=== PATIENT | male | born 1945 | race Caucasian/White ===

== ENCOUNTER 2019-11-28 00:57 | Inpatient (IN) | payer MEDICARE ==
[~2019-11-28] VITALS: Ht 172.7 cm; Wt 99.8 kg
[2019-11-28] VITALS (10 sets, daily range): BP systolic 117–152; BP diastolic 50–81; BMI 33.5
--- NOTE | 2019-11-28 01:41 | NUR ---
FSBS 113. EDP INFORMED.
--- NOTE | 2019-11-28 04:31 | NUR ---
URINE OBTAINED VIA STRAIGHT CATH AT THIS TIME.
[2019-11-28 04:44] LABS: BASOPHILS 0.3 % (0-2); EOSINOPHILS 0.6 % (0-7); HEMATOCRIT 31.2 % (42.0-54.0); HEMOGLOBIN 9.8 g/dL (13.5-17.5); IMMATURE GRANULOCYTES 0.1 % (0-5); LYMPHOCYTES 8.1 % (15-50); MCH 27.5 pg (26.0-34.0); MCHC 31.4 g/dL (31.0-37.0); MCV 87.6 fL (80.0-100.0); MEAN PLATELET VOLUME 8.8 fL (7.4-10.4); MONOCYTES 10.7 % (2-11); NEUTROPHILS 80.2 % (40-80); PLATELET COUNT 246 10x3/uL (130-400); RBC 3.56 10x6/uL (4.20-6.10); RDW 15.8 % (11.5-14.5); WBC 8.6 10x3/uL (4.8-10.8)
[2019-11-28 04:53] LABS: ANION GAP 9.3 mmol/L (8-16); CALCIUM 8.1 mg/dL (8.5-10.1); CARBON DIOXIDE 31.4 mmol/L (21.0-32.0); CREATININE - SERUM 1.4 mg/dL (0.6-1.3); POTASSIUM - SERUM 3.7 mmol/L (3.5-5.1)
[2019-11-28 04:58] LABS: ALBUMIN 2.3 g/dL (3.4-5.0); BILIRUBIN - TOTAL 1.68 mg/dL (0.2-1.3); PROTEIN - SERUM 8.2 g/dL (6.4-8.2)
[2019-11-28 05:40] LABS: BILIRUBIN NEGATIVE (NEGATIVE); GLUCOSE NEGATIVE (NEGATIVE); KETONE NEGATIVE (NEGATIVE); NITRITE NEGATIVE (NEGATIVE); SPECIFIC GRAVITY 1.015 (1.005-1.020); UROBILINOGEN NORMAL (NORMAL)
[2019-11-28 05:41] LABS: BACTERIA MODERATE /hpf (NEGATIVE); EPITHELIAL CELLS 0-5 /hpf (0-5); RED CELLS - URINE 0-5 /hpf (0-5)
[2019-11-28] MEDS ORDERED: FOLATE0.4 MG PO (06:35)
[2019-11-28] MEDS ORDERED: KLONOPIN0.5 MG PO (06:35)
[2019-11-28] MEDS ORDERED: HUMALOG 30100 UNITS/ (06:36)
[2019-11-28] MEDS ORDERED: GENTAMICIN80 MG/2 ML IM (06:36)
[2019-11-28] MEDS ORDERED: BASAGLAR K100 UNIT/1 SC (06:37)
[2019-11-28] MEDS ORDERED: ATARAX 25 MG TA25 MG PO (06:37)
[2019-11-28] MEDS ORDERED: LASIX40 MG PO (06:38)
[2019-11-28] MEDS ORDERED: MIRAPEX0.5 MG PO (06:38)
[2019-11-28] MEDS ORDERED: METOLAZONE5 MG PO (06:38)
[2019-11-28] MEDS ORDERED: MIRALAX17 GM PO (06:39)
[2019-11-28] MEDS ORDERED: K-TAB10 MEQ PO (06:40)
--- NOTE | 2019-11-28 07:30 | NUR ---
ARRIVED TO ROOM 2217 FROM ER YELLING OUT. RESP EVEN AND UNLABORED WITH NO DISTRESS NOTED. NO C/O NOTED AT THIS TIME. TURN AND REPOSITIONED EVERY TWO HOURS. DRESSING NOTED TO BLE. BRUISING NOTED TO BUE. REDNESS NOTED TO BUTTOCK. ASSESSMENT COMPLETED. INCONT OF BOWEL AND BLADDER WITH JB CARE GIVEN EVERY TWO HOURS AND PRN. C/L IN REACH AT BEDSIDE.
--- NOTE | 2019-11-28 07:31 | NUR ---
I have reviewed this patient and I concur with the Shift Assessment completed by the Licensed Practical Nurse today this shift.
--- NOTE | 2019-11-28 11:49 | NUR ---
Pt has numerous open and scabbed wounds on bilateral lower extremities. Skin is dry, flaky and hairless. He is unable to answer any questions as to how long he has had these wounds. He also 0.5cm x 0.5cm of eschar on tip of both great toes. Recommend painting with betadine and covering leg wounds with adaptic soaked with betadine then wrapping with cast padding and kerlix from base of toes to base of knees on both legs. Wound care will monitor.
[2019-11-28 14:52] LABS: APTT 49.5 SECONDS (22.8-39.4); INR 1.55 (0.85-1.17); PROTIME 18.4 SECONDS (11.6-15.0)
--- NOTE | 2019-11-28 19:30 | NUR ---
ORIENTED TO SELF. UNABLE TO REORIENT. PT FORGETS CONVERSATIONS IMMEDIATELY AFTER NURSE EXITS ROOM. PT YELLING LOUDLY, "I WANNA GO HOME," "I NEED TO GET UP," AND SHOUTING DEMANDS. PT SEEN TRYING TO GET OUT OF BED. INCONT OR BOWEL AND BLADDER. GIVEN WATER AND SNACKS PER REQUEST, PT IS THROWING THEM IN THE MOHR AND ON THE FLOOR NEXT TO BED. WILL MONITOR CLOSELY.
[2019-11-29] VITALS: BP 109/67
--- NOTE | 2019-11-29 02:53 | NUR ---
I have reviewed this patient and I concur with the Shift Assessment completed by the Licensed Practical Nurse today this shift.
[2019-11-29 04:00] VITALS: BP 117/55
[2019-11-29 05:09] LABS: BASOPHILS 0.7 % (0-2); EOSINOPHILS 1.4 % (0-7); HEMATOCRIT 32.6 % (42.0-54.0); HEMOGLOBIN 10.1 g/dL (13.5-17.5); IMMATURE GRANULOCYTES 0.3 % (0-5); LYMPHOCYTES 11.8 % (15-50); MCH 26.9 pg (26.0-34.0); MCV 86.9 fL (80.0-100.0); MEAN PLATELET VOLUME 9.3 fL (7.4-10.4); MONOCYTES 12.1 % (2-11); NEUTROPHILS 73.7 % (40-80); PLATELET COUNT 272 10x3/uL (130-400); RBC 3.75 10x6/uL (4.20-6.10); RDW 16.1 % (11.5-14.5)
[2019-11-29 05:40] LABS: ALBUMIN 2.1 g/dL (3.4-5.0); ANION GAP 9.5 mmol/L (8-16); BILIRUBIN - TOTAL 1.67 mg/dL (0.2-1.3); CALCIUM 7.9 mg/dL (8.5-10.1); CARBON DIOXIDE 30.8 mmol/L (21.0-32.0); CREATININE - SERUM 1.7 mg/dL (0.6-1.3); PHOSPHOROUS 3.4 mg/dL (2.5-4.9); POTASSIUM - SERUM 3.3 mmol/L (3.5-5.1); PROTEIN - SERUM 7.8 g/dL (6.4-8.2)
[2019-11-29 09:28] VITALS: BP 132/60
[2019-11-29 13:20] VITALS: BP 126/59
[2019-11-29 13:30] VITALS: Ht 172.7 cm; Wt 99.8 kg
[2019-11-29 16:45] VITALS: BP 129/63
--- NOTE | 2019-11-29 17:30 | NUR ---
I have reviewed this patient and I concur with the Shift Assessment completed by the Licensed Practical Nurse today this shift.
[2019-11-29 20:00] VITALS: BP 129/59
[2019-11-30] VITALS: BP 129/59
--- NOTE | 2019-11-30 03:57 | NUR ---
I have reviewed this patient and I concur with the Shift Assessment completed by the Licensed Practical Nurse today this shift.
[2019-11-30 04:00] VITALS: BP 136/77
[2019-11-30 05:08] LABS: BASOPHILS 0.4 % (0-2); EOSINOPHILS 2.4 % (0-7); HEMATOCRIT 32.4 % (42.0-54.0); HEMOGLOBIN 9.8 g/dL (13.5-17.5); IMMATURE GRANULOCYTES 0.4 % (0-5); LYMPHOCYTES 14.8 % (15-50); MCH 26.4 pg (26.0-34.0); MCHC 30.2 g/dL (31.0-37.0); MCV 87.3 fL (80.0-100.0); MEAN PLATELET VOLUME 9.1 fL (7.4-10.4); MONOCYTES 12.9 % (2-11); NEUTROPHILS 69.1 % (40-80); PLATELET COUNT 291 10x3/uL (130-400); RBC 3.71 10x6/uL (4.20-6.10); RDW 16.3 % (11.5-14.5)
[2019-11-30 05:45] LABS: ANION GAP 11.5 mmol/L (8-16); CALCIUM 8.3 mg/dL (8.5-10.1); CARBON DIOXIDE 30.6 mmol/L (21.0-32.0); CREATININE - SERUM 1.5 mg/dL (0.6-1.3); POTASSIUM - SERUM 3.1 mmol/L (3.5-5.1)
--- NOTE | 2019-11-30 08:03 | NUR ---
ADMINISTERED MORNING MEDICATION AT THIS TIME, NO DIFFICULTY. PT IS UPRIGHT IN BED WAITING FOR BREAKFAST. DENIES ANY NEEDS. BED IN LOWEST POSITION, BED RAILS X3, CALL LIGHT WITHIN REACH. WILL CONTINUE TO MONITOR.
[2019-11-30 08:45] VITALS: BP 141/75
--- NOTE | 2019-11-30 11:20 | NUR ---
ADMINISTERED MEDICATION AND ASSESSED BLOOD SUGAR. 225, REQUIRED 4 UNITS OF INSULIN PER SLIDING SCALE. DENIES ANY NEEDS. ASSESSMENT PERFORMED DURING THIS TIME. BED IN LOWEST POSITION, BED RAILS X3, CALL LIGHT WITHIN REACH. WILL CONTINUE TO MONITOR.
[2019-11-30 12:30] VITALS: BP 120/57
--- NOTE | 2019-11-30 14:00 | NUR ---
ADMINISTERED PRN FOR PAIN/BURNING IN BILATERAL LOWER LEGS. CHANGED DRESSING ON BOTH LEGS AND FEET. TOLERATED WELL. PT IS RESTING COMFORTABLY IN BED. DENIES ANY OTHER NEEDS AT THIS TIME. WILL CONTINUE TO MONITOR.
--- NOTE | 2019-11-30 14:17 | NUR ---
I have reviewed this patient and I concur with the Shift Assessment completed by the Licensed Practical Nurse today this shift.
--- NOTE | 2019-11-30 15:50 | NUR ---
PT HAS NO IV, CONTINUES TO PULL OUT ALL IV'S STARTED. WILL REQUEST THE ONE ANTIBIOTIC THAT IS PRESCRIBED, BE CHANGED TO PO.
--- NOTE | 2019-11-30 16:38 | NUR ---
ASSESSED BLOOD SUGAR, 172. 2 UNITS OF INSULIN PER SLIDING SCALE. TOLERATED. PT RESTING IN BED WITH EYES CLOSED, EASILY AROUSES TO VOICE. DENIES ANY NEEDS. WILL CONTINUE TO MONITOR.
[2019-11-30 16:47] VITALS: BP 106/70
[2019-11-30 20:00] VITALS: BP 139/71
--- NOTE | 2019-11-30 23:32 | NUR ---
AWAKE,ALERT WITH CONFUSION NOTED. IV TO LFA INTACT WITHOUT REDNESS OR EDEMA NOTED. HAS BRUSING NOTED TO BILATERAL ARMS.DRESSING TO BILATERAL LEGS.FALL PRECAUTIONS IN PLACE. CL IN REACH
--- NOTE | 2019-12-01 02:51 | NUR ---
I have reviewed this patient and I concur with the Shift Assessment completed by the Licensed Practical Nurse today this shift.
[2019-12-01 04:00] VITALS: BP 136/65
[2019-12-01 05:27] LABS: HEMATOCRIT 30.4 % (42.0-54.0); HEMOGLOBIN 9.6 g/dL (13.5-17.5); LYMPHOCYTES 15.1 % (15-50); MCH 27.7 pg (26.0-34.0); MCHC 31.6 g/dL (31.0-37.0); MCV 87.9 fL (80.0-100.0); MEAN PLATELET VOLUME 8.7 fL (7.4-10.4); NEUTROPHILS 73.4 % (40-80); PLATELET COUNT 292 10x3/uL (130-400); RBC 3.46 10x6/uL (4.20-6.10); RDW 16.2 % (11.5-14.5); WBC 7.6 10x3/uL (4.8-10.8)
[2019-12-01 05:33] LABS: ANION GAP 8.1 mmol/L (8-16); CALCIUM 7.8 mg/dL (8.5-10.1); CARBON DIOXIDE 31.3 mmol/L (21.0-32.0); CREATININE - SERUM 1.4 mg/dL (0.6-1.3); POTASSIUM - SERUM 3.4 mmol/L (3.5-5.1)
[2019-12-01 07:00] VITALS: BP 113/71
--- NOTE | 2019-12-01 07:47 | NUR ---
PT RESTING IN BED ALERT, BUT CONFUSED. IV LOCATED TO LEFT FOREARM CURRENTLY RUNNING NS @ 10ML/HR. NO CURRENT S/S OF DISTRESS, DENIES CURRENT NEEDS, WILL CONTINUE TO MONITOR.
[2019-12-01 11:00] VITALS: BP 113/71; BP 137/68
[2019-12-01 15:00] VITALS: BP 119/48
--- NOTE | 2019-12-01 23:48 | NUR ---
DRESSING CHANGE DONE TO BIALTERAL LOWER LEGS. HAS REDNESS WITH SCABS AND SORES NOTED. BLACK AREAS NOTED. IV TO LFA INTACT WITHOUT REDNESS OR EDMEA NOTED. CL IN REACH
[2019-12-02] VITALS: BP 140/54
[2019-12-02 04:00] VITALS: BP 144/57
--- NOTE | 2019-12-02 06:18 | NUR ---
I have reviewed this patient and I concur with the Shift Assessment completed by the Licensed Practical Nurse today this shift.
[2019-12-02 06:35] LABS: HEMOGLOBIN 9.8 g/dL (13.5-17.5); LYMPHOCYTES 18.8 % (15-50); MCHC 30.6 g/dL (31.0-37.0); MCV 88.2 fL (80.0-100.0); MEAN PLATELET VOLUME 8.2 fL (7.4-10.4); NEUTROPHILS 64.5 % (40-80); PLATELET COUNT 264 10x3/uL (130-400); RBC 3.63 10x6/uL (4.20-6.10); RDW 16.4 % (11.5-14.5)
[2019-12-02 06:59] LABS: ANION GAP 7.9 mmol/L (8-16); CALCIUM 7.8 mg/dL (8.5-10.1); CARBON DIOXIDE 31.3 mmol/L (21.0-32.0); CREATININE - SERUM 1.4 mg/dL (0.6-1.3)
[2019-12-02 07:00] LABS: POTASSIUM - SERUM 3.2 mmol/L (3.5-5.1)
--- NOTE | 2019-12-02 08:30 | NUR ---
PATIENT IN BED WITH IV INTACT. NO COMPLAINTS OR SIGNS OF DISTRESS. CONFUSED, BA ON. CALL LIGHT WITHIN REACH. WILL CONTINUE TO MONITOR.
[2019-12-02 08:32] VITALS: BP 157/71
[2019-12-02 12:40] VITALS: BP 140/80
[2019-12-02 17:37] VITALS: BP 140/78
--- NOTE | 2019-12-02 18:45 | NUR ---
PATIENT IN BED WITH EYES CLOSED RESTING QUIETLY. IV INTACT. CALL LIGHT WITHIN REACH. BA.
[2019-12-02 20:00] VITALS: BP 133/91
--- NOTE | 2019-12-02 21:00 | NUR ---
AWAKE,ALERT,CONTINUES TO HAVE CONFUSIONN. ORIETED TO SELF ONLY.RESP UNALBORED. NO DISTRESS NOTED. DRESSINGS TO BILATERAL LEGS INTACT.O2@ 2L PER NC ON NO DISTRESS NOTED. CL LIGHT IN REACH
[2019-12-03 04:51] LABS: HEMATOCRIT 31.1 % (42.0-54.0); HEMOGLOBIN 9.7 g/dL (13.5-17.5); LYMPHOCYTES 16.6 % (15-50); MCH 27.4 pg (26.0-34.0); MCHC 31.2 g/dL (31.0-37.0); MCV 87.9 fL (80.0-100.0); MEAN PLATELET VOLUME 8.4 fL (7.4-10.4); NEUTROPHILS 66.6 % (40-80); PLATELET COUNT 257 10x3/uL (130-400); RBC 3.54 10x6/uL (4.20-6.10); RDW 16.7 % (11.5-14.5); WBC 5.9 10x3/uL (4.8-10.8)
[2019-12-03 05:04] LABS: ANION GAP 9.5 mmol/L (8-16); CARBON DIOXIDE 30.2 mmol/L (21.0-32.0); CREATININE - SERUM 1.5 mg/dL (0.6-1.3)
[2019-12-03 05:10] LABS: POTASSIUM - SERUM 3.7 mmol/L (3.5-5.1)
[2019-12-03 08:10] VITALS: BP 132/63
[2019-12-03 11:54] VITALS: BP 135/66
--- NOTE | 2019-12-03 12:29 | NUR ---
NO CHANGES IN WOUNDS ON BILATERAL LOWER LEGS. CURRENTLY APPLYING BETADINE SOAKED ADAPTIC OVER OPEN AREAS AND WRAPPING WITH KERLIX. BUTTOCKS BLANCHABLE REDNESS. ZINC OXIDE PASTE IS BEING APPLIED DAILY AND NEEDED WITH PERSONAL CARE. WOUND CARE CONTINUES TO MONITOR.
--- NOTE | 2019-12-03 13:44 | NUR ---
Nutrition follow-up: Pt was eating breakfast at time of RDN visit PO intake has improved - ~50% average at meals Pt more alert Labs reviewed Wt: 219# +BM RDN following.
--- NOTE | 2019-12-03 13:44 | MORECARE ---
CASE MANAGEMENT DISCHARGE SUMMARY PATIENT: DELICIA BRYSON UNIT: [id number] ADM DATE: 11/28/19 AGE: 74 : 44 SEX: M ROOM/BED: D.2217 AUTHOR: GUSTAVO MICHELE PHYSICIAN: REFERRING PHYSICIAN: LILIAN IGLESIAS MD DATE OF SERVICE: 12/03/19 Discharge Plan Patient Name: DELICIA BRYSON [facility] [facility] 1945 Planned Disposition: Inpatient Rehab Anticipated Discharge Date: Discharge Date: Expected LOS: Initial Reviewer: [id number] Initial Review Date: 11/28/2019 Generated: 12/03/19 2:44 pm Patient Name: DELICIA BRYSON Page 61850 at 1344 All edits/amendments must be made on the electronic document DICTATION DATE: 12/03/19 1344 PERSONAL BANKING ASSISTANT: ONOFRE 12/03/19 1344 RPT#: [id number] DC DATE: STATUS: ADM IN [facility] [address] [place] [address] END OF REPORT
--- NOTE | 2019-12-03 13:52 | MORECARE ---
CASE MANAGEMENT DISCHARGE SUMMARY PATIENT: DELICIA BRYSON UNIT: [id number] ADM DATE: 11/28/19 AGE: 74 : 44 SEX: M ROOM/BED: D.2217 AUTHOR: GUSTAVO MICHELE PHYSICIAN: REFERRING PHYSICIAN: LILIAN IGLESIAS MD DATE OF SERVICE: 12/03/19 Discharge Plan Patient Name: DELICIA BRYSON [facility] [facility] 1945 Planned Disposition: Inpatient Rehab Anticipated Discharge Date: Discharge Date: Expected LOS: Initial Reviewer: [email or web address] Initial Review Date: 11/28/2019 Generated: 12/03/19 2:52 pm DCPIA - Discharge Planning Initial Assessment Updated by [id number]: Denisse Barnes on 12/03/19 1:50 pm * Is the patient Alert and Oriented? Yes * How many steps to enter\exit or inside your home? STEPS * PCP HOLLIE * [facility] * Preadmission Environment [facility] Facility * Facility Name [facility] * ADLs Total Dependent * Equipment Bedside Commode * List name and contact numbers for known caregivers / representatives who currently or will assist patient after discharge: KAILA KNAPP ([facility])[phone] * Verbal permission to speak to the caregivers and representatives has been obtained from the patient. Yes * Additional services required to return to the preadmission environment? Yes * Can the patient safely return to the preadmission environment? Yes * Has this patient been hospitalized within the prior 30 days at any hospital? No Last DP export: 12/03/19 12:44 p Patient Name: DELICIA BRYSON Page 36640 at 1352 All edits/amendments must be made on the electronic document DICTATION DATE: 12/03/19 135 UNIFORM FORCE CAPTAIN: ONOFRE 12/03/19 1352 RPT#: [id number] DC DATE: STATUS: ADM IN [facility] [address] [place] [address] END OF REPORT
--- NOTE | 2019-12-03 14:00 | MORECARE ---
CASE MANAGEMENT DISCHARGE SUMMARY PATIENT: DELICIA BRYSON UNIT: [id number] ADM DATE: 11/28/19 AGE: 74 : 44 SEX: M ROOM/BED: D.2217 AUTHOR: LENYDOC PHYSICIAN: REFERRING PHYSICIAN: LILIAN IGLESIAS MD DATE OF SERVICE: 12/03/19 Discharge Plan Patient Name: DELICIA BRYSON Facility: [facility]:[place] : 1945 Planned Disposition: Inpatient Rehab Anticipated Discharge Date: Discharge Date: Expected LOS: Initial Reviewer: [email or web address] Initial Review Date: 11/28/2019 Generated: 12/03/19 2:59 pm Comments DCP- Discharge Planning Updated by [email or web address]: Denisse Barnes on 12/03/19 12:[address] Patient Name: DELICIA BRYSON Admission Status: ER Accout number: [id number] Admission Date: 11-28-2019 : 1945 Admission Diagnosis: Attending: LILIAN IGLESIAS Current LOS: 5 Anticipated DC Date: Planned Disposition: Inpatient Rehab Primary Insurance: MEDICARE A & B Discharge Planning Comments: CM met with patient to complete initial dc planning assessment. CM educated patient on the CM role and verbal consent given by patient to complete assessment. Patient lives at home with his friend Sharon who is also his POA Patient stated that he has multiple DME and would love to go to inpatient rehab at [facility]. I asked if I could speak with his girlfriend for more information and permission was given. I spoke with Sharon & she stated that he is at [facility] in a skilled bed and they are working on getting him BEATRICE. Sharon asked about Hospice services, she stated that he has gone down [place] recently and is partial to total care. We discussed hospice & skilled. Her plan is for him to return to [facility] when he is ready for discharge. I did have the patient sign a TAYLOR and IMM was explained to patient and copy given . CM will continue to follow and will assist as needed with dc plans/needs. Glove Former: Denisse Barnes DCPIA - Discharge Planning Initial Assessment Updated by [id number]: Denisse Barnes on 5/11/20 1:50 pm * Is the patient Alert and Oriented? Yes * How many steps to enter\exit or inside your home? STEPS * PCP HOLLIE * [facility] * Preadmission Environment [facility] Facility * Facility Name [facility] * ADLs Total Dependent * Equipment Bedside Commode * List name and contact numbers for known caregivers / representatives who currently or will assist patient after discharge: SHARON KNAPP (POA)[phone] * Verbal permission to speak to the caregivers and representatives has been obtained from the patient. Yes * Additional services required to return to the preadmission environment? Yes * Can the patient safely return to the preadmission environment? Yes * Has this patient been hospitalized within the prior 30 days at any hospital? No Coverage Notice Reviewer: [id number] Barnes Notice Issued Date-Time: 12/03/2019 13:45 Notice Type: IM Discharge Notice Notice Delivered To: Patient Relationship to Patient: Block Tester Name: Delivery Method: HAND - Hand Delivered Pauline Days: Prior Verbal Notification: Recipient Understood Notice: Yes Recipient Signature: Yes Med Rec Note Co-signed by Attending: Coverage Notice Comment: Reviewer: [id number] Barnes Notice Issued Date-Time: 12/03/2019 13:45 Notice Type: Patient Choice Letter Notice Delivered To: Patient Relationship to Patient: Power of Companion Block Tester Name: SHARON Delivery Method: HAND - Hand Delivered Pauline Days: Prior Verbal Notification: Recipient Understood Notice: Yes Recipient Signature: Yes Med Rec Note Co-signed by Attending: Coverage Notice Comment: Last DP export: 12/03/19 12:52 p Patient Name: DELICIA BRYSON Page 80200 at 1400 All edits/amendments must be made on the electronic document DICTATION DATE: 12/03/19 1359 ELECTRIC MULE DRIVER: ONOFRE 12/03/19 1359 RPT#: [id number] DC DATE: STATUS: ADM IN [facility] [address] [place] [address] END OF REPORT
[2019-12-03 16:17] VITALS: BP 117/57
--- NOTE | 2019-12-03 18:35 | NUR ---
PATIENT SITTING UP IN BED WITH EYES CLOSED RESTING QUIETLY. IV INTACT. NO COMPLAINTS. CALL LIGHT WITHIN REACH.
[2019-12-03 20:52] VITALS: BP 124/57
--- NOTE | 2019-12-04 00:02 | NUR ---
I have reviewed this patient and I concur with the Shift Assessment completed by the Licensed Practical Nurse today this shift.
[2019-12-04 04:00] VITALS: BP 185/98
[2019-12-04 04:54] LABS: HEMATOCRIT 33.8 % (42.0-54.0); HEMOGLOBIN 10.4 g/dL (13.5-17.5); MCH 27.2 pg (26.0-34.0); MCHC 30.8 g/dL (31.0-37.0); MCV 88.3 fL (80.0-100.0); MEAN PLATELET VOLUME 8.6 fL (7.4-10.4); PLATELET COUNT 246 10x3/uL (130-400); RBC 3.83 10x6/uL (4.20-6.10); RDW 16.7 % (11.5-14.5); WBC 6.1 10x3/uL (4.8-10.8)
[2019-12-04 05:04] LABS: ANION GAP 9.1 mmol/L (8-16); CALCIUM 8.2 mg/dL (8.5-10.1); CARBON DIOXIDE 32.4 mmol/L (21.0-32.0); CREATININE - SERUM 1.3 mg/dL (0.6-1.3); POTASSIUM - SERUM 3.5 mmol/L (3.5-5.1)
[2019-12-04 09:03] VITALS: BP 154/79
[2019-12-04 12:48] VITALS: BP 147/78
[2019-12-04 20:00] VITALS: BP 113/51
[2019-12-05 04:00] VITALS: BP 146/57
[2019-12-05 04:52] LABS: BASOPHILS 0.7 % (0-2); EOSINOPHILS 4.6 % (0-7); HEMATOCRIT 32.2 % (42.0-54.0); HEMOGLOBIN 9.8 g/dL (13.5-17.5); IMMATURE GRANULOCYTES 0.1 % (0-5); LYMPHOCYTES 14.9 % (15-50); MCH 26.8 pg (26.0-34.0); MCHC 30.4 g/dL (31.0-37.0); MCV 88.2 fL (80.0-100.0); MEAN PLATELET VOLUME 8.7 fL (7.4-10.4); MONOCYTES 11.3 % (2-11); NEUTROPHILS 68.4 % (40-80); PLATELET COUNT 217 10x3/uL (130-400); RBC 3.65 10x6/uL (4.20-6.10); RDW 16.4 % (11.5-14.5); WBC 7.2 10x3/uL (4.8-10.8)
[2019-12-05 05:10] LABS: ALBUMIN 2.3 g/dL (3.4-5.0); ANION GAP 1.4 mmol/L (8-16); BILIRUBIN - TOTAL 1.52 mg/dL (0.2-1.3); CALCIUM 8.1 mg/dL (8.5-10.1); CARBON DIOXIDE 31.4 mmol/L (21.0-32.0); CREATININE - SERUM 1.2 mg/dL (0.6-1.3); POTASSIUM - SERUM 3.8 mmol/L (3.5-5.1); PROTEIN - SERUM 7.8 g/dL (6.4-8.2)
--- NOTE | 2019-12-05 06:00 | NUR ---
I have reviewed this patient and I concur with the Shift Assessment completed by the Licensed Practical Nurse today this shift.
--- NOTE | 2019-12-05 09:29 | MORECARE ---
CASE MANAGEMENT DISCHARGE SUMMARY PATIENT: DELICIA BRYSON UNIT: [id number] ADM DATE: 11/28/19 AGE: 74 : 44 SEX: M ROOM/BED: D.2217 AUTHOR: LENYDOC PHYSICIAN: REFERRING PHYSICIAN: LILIAN IGLESIAS MD DATE OF SERVICE: 12/05/19 Discharge Plan Patient Name: DELICIA BRYSON Facility: [facility]:[place] : 1945 Planned Disposition: Inpatient Rehab Anticipated Discharge Date: Discharge Date: Expected LOS: Initial Reviewer: [email or web address] Initial Review Date: 11/28/2019 Generated: 12/05/19 10:28 am DCP- Discharge Planning Updated by [email or web address]: Denisse Barnes on 12/03/19 12:[address] Patient Name: DELICIA BRYSON Admission Status: ER Accout number: [id number] Admission Date: 11-28-2019 : 1945 Admission Diagnosis: Attending: LILIAN IGLESIAS Current LOS: 5 Anticipated DC Date: Planned Disposition: Inpatient Rehab Primary Insurance: MEDICARE A & B Discharge Planning Comments: CM met with patient to complete initial dc planning assessment. CM educated patient on the CM role and verbal consent given by patient to complete assessment. Patient lives at home with his friend Sharon who is also his POA Patient stated that he has multiple DME and would love to go to inpatient rehab at [facility]. I asked if I could speak with his girlfriend for more information and permission was given. I spoke with Sharon & she stated that he is at [facility] in a skilled bed and they are working on getting him BEATRICE. Sharon asked about Hospice services, she stated that he has gone down [place] recently and is partial to total care. We discussed hospice & skilled. Her plan is for him to return to [facility] when he is ready for discharge. I did have the patient sign a TAYLOR and IMM was explained to patient and copy given . CM will continue to follow and will assist as needed with dc plans/needs. Sash Finisher: Denisse Barnes DCPIA - Discharge Planning Initial Assessment Updated by [email or web address]: Denisse Barnes on 12/03/19 1:50 pm * Is the patient Alert and Oriented? Yes * How many steps to enter\exit or inside your home? STEPS * PCP HOLLIE * [facility] * Preadmission Environment Alf Facility * Facility Name [facility] * ADLs Total Dependent * Equipment Bedside Commode * List name and contact numbers for known caregivers / representatives who currently or will assist patient after discharge: SHARON KNAPP (POA)[phone] * Verbal permission to speak to the caregivers and representatives has been obtained from the patient. Yes * Additional services required to return to the preadmission environment? Yes * Can the patient safely return to the preadmission environment? Yes * Has this patient been hospitalized within the prior 30 days at any hospital? No External Providers External Provider: [facility] Next Contact Date: Service Request Date: Service Type: Resolution: Reviewer: Comments: Coverage Notice Reviewer: [id number] Tyler Banres Notice Issued Date-Time: 12/03/2019 13:45 Notice Type: IM Discharge Notice Notice Delivered To: Patient Relationship to Patient: Cutter And Edge Trimmer Name: Delivery Method: HAND - Hand Delivered Pauline Days: Prior Verbal Notification: Recipient Understood Notice: Yes Recipient Signature: Yes Med Rec Note Co-signed by Attending: Coverage Notice Comment: Reviewer: [id number] Tyler Barnes Notice Issued Date-Time: 12/03/2019 13:45 Notice Type: Patient Choice Letter Notice Delivered To: Patient Relationship to Patient: Power of Wet Trimmer Cutter And Edge Trimmer Name: SHARON Delivery Method: HAND - Hand Delivered Pauline Days: Prior Verbal Notification: Recipient Understood Notice: Yes Recipient Signature: Yes Med Rec Note Co-signed by Attending: Coverage Notice Comment: Last DP export: 12/03/19 1:00 p Patient Name: DELICIA BRYSON Page 77079 at 0929 All edits/amendments must be made on the electronic document DICTATION DATE: 12/05/19927 AG SERVICE MANAGER: ONOFRE 12/05/19927 RPT#: [id number] DC DATE: STATUS: ADM IN [facility] [address] [place] [address] END OF REPORT
--- NOTE | 2019-12-05 09:37 | MORECARE ---
CASE MANAGEMENT DISCHARGE SUMMARY PATIENT: DELICIA BRYSON UNIT: [id number] ADM DATE: 11/28/19 AGE: 74 : 44 SEX: M ROOM/BED: D.1947 AUTHOR: LENY,DOC PHYSICIAN: REFERRING PHYSICIAN: LILIAN IGLESIAS MD DATE OF SERVICE: 12/05/19 Discharge Plan Patient Name: DELICIA BRYSON Facility: [facility]:[place] : 1945 Planned Disposition: Inpatient Rehab Anticipated Discharge Date: Discharge Date: Expected LOS: Initial Reviewer: [email or web address] Initial Review Date: 11/28/2019 Generated: 12/05/19 10:36 am Comments DCP- Discharge Planning Updated by [email or web address]: Denisse Barnes on 12/05/19 8:[address] CLINCIALS FAXED TO [facility], SPOKE WITH ANUPAMA WITH [facility] DCP- Discharge Planning Updated by [id number]: Denisse Barnes on 12/03/19 12:[address] Patient Name: DELICIA BRYSON Admission Status: ER Accout number: [id number] Admission Date: 11-28-2019 : 1945 Admission Diagnosis: Attending: LILIAN IGLESIAS Current LOS: 5 Anticipated DC Date: Planned Disposition: Inpatient Rehab Primary Insurance: MEDICARE A & B Discharge Planning Comments: CM met with patient to complete initial dc planning assessment. CM educated patient on the CM role and verbal consent given by patient to complete assessment. Patient lives at home with his friend Sharon who is also his POA Patient stated that he has multiple DME and would love to go to inpatient rehab at [facility]. I asked if I could speak with his girlfriend for more information and permission was given. I spoke with Sharon & she stated that he is at [facility] in a skilled bed and they are working on getting him BEATRICE. Sharon asked about Hospice services, she stated that he has gone down [place] recently and is partial to total care. We discussed hospice & skilled. Her plan is for him to return to [facility] when he is ready for discharge. I did have the patient sign a TAYLOR and IMM was explained to patient and copy given . CM will continue to follow and will assist as needed with dc plans/needs. Postal Service Clerk: Denisse Barnes DCPIA - Discharge Planning Initial Assessment Updated by [email or web address]: Denisse Barnes on 12/03/19 1:50 pm * Is the patient Alert and Oriented? Yes * How many steps to enter\exit or inside your home? STEPS * PCP HOLLIE * [facility] * Preadmission Environment Intermediate Facility * Facility Name [facility] * ADLs Total Dependent * Equipment Bedside Commode * List name and contact numbers for known caregivers / representatives who currently or will assist patient after discharge: SHARON KNAPP (POA)[phone] * Verbal permission to speak to the caregivers and representatives has been obtained from the patient. Yes * Additional services required to return to the preadmission environment? Yes * Can the patient safely return to the preadmission environment? Yes * Has this patient been hospitalized within the prior 30 days at any hospital? No Coverage Notice Reviewer: [id number] Tyler Barnes Notice Issued Date-Time: 12/03/2019 13:45 Notice Type: IM Discharge Notice Notice Delivered To: Patient Relationship to Patient: Career Center Advisor Name: Delivery Method: HAND - Hand Delivered Pauline Days: Prior Verbal Notification: Recipient Understood Notice: Yes Recipient Signature: Yes Med Rec Note Co-signed by Attending: Coverage Notice Comment: Reviewer: [id number] - Denisse Barnes Notice Issued Date-Time: 12/03/2019 13:45 Notice Type: Patient Choice Letter Notice Delivered To: Patient Relationship to Patient: Power of Sash Finisher Career Center Advisor Name: SHARON Delivery Method: HAND - Hand Delivered Pauline Days: Prior Verbal Notification: Recipient Understood Notice: Yes Recipient Signature: Yes Med Rec Note Co-signed by Attending: Coverage Notice Comment: Last DP export: 12/05/19 8:29 a Patient Name: DELICIA BRYSON Page 47904 at 0937 All edits/amendments must be made on the electronic document DICTATION DATE: 12/05/19935 HIGH SCHOOL MUSIC DIRECTOR: ONOFRE 12/05/19935 RPT#: [id number] DC DATE: STATUS: ADM IN [facility] [address] [place] [address] END OF REPORT
[2019-12-05 09:53] VITALS: BP 137/53
--- NOTE | 2019-12-05 10:41 | NUR ---
RESTING IN BED, NO DISTRESS NOTED, CONFUSED, DRESSING TO LOWER LEGS LOOSE, WILL REDRESS TODAY, O2 PER NC, CONT TO MONITOR SUGARS AND SATS
[2019-12-05 13:21] VITALS: BP 130/59
--- NOTE | 2019-12-05 15:42 | NUR ---
OT NOTE: REQUIRED MERCHANT ASSIST TODAY. BED MOB WITH MOD ASSIST; STATIC SITTING WITH CGA..IMPROVED SITTING BALANCE TODAY. ATTEMPTED SIT TO STAND WITH WALKER AND MOD ASSIST.. PT ABLE TO TAKE SIDE STEPS WITH SIMPLE AND CONSTANT COMMANDS WITH USE OF GAIT BELT, WALKER, AND MIN/MOD ASSIST X 2; ABLE TO SIT ON EOB WITH MIN ASSIST TO PERFORM WASHING FACE, ARMS,AND HANDS WITH WASH CLOTH AND SET UP; DONNED GOWN WITH MOD ASSIST. SABINA YANG, OTR/L [phone]
[2019-12-05 16:46] VITALS: BP 114/61
--- NOTE | 2019-12-05 18:16 | NUR ---
OT NOTE: PT COMPLETED SUPINE TO SIT WITH MAX A X2. PT COMPLETED SIT TO STAND WITH MAX A X2. PT COMPLETED BATHING TASKS WHILE SITTING AT EOB WITH MOD/MAX A. PT COMPLETED SIDE STEPPING WITH MAX A X2. PT EXHIBITED INCREASED FUNCTIONAL INDEPENDENCE AND DECREASED CONFUSION. [id number] THANK YOU,MAYUR MORALES
[2019-12-06] VITALS: BP 133/56
--- NOTE | 2019-12-06 00:38 | NUR ---
REC'D CHGE OF SHIFT WALKING ROUNDS SITTING ON SIDE OF BED ALARM SOUNDING ALERT BUT REMAINS CONFUSED TO TIME PLACE SITUATION.ASSISTED UP IN BED ALARM RESET. DRSGS LOWER EXT DRY AND INTACT.WILL CONTINUE TO MONITOR FOR ANY CHGES NEUROVASCULAR STATUS AND FOLLOW CURRENT PLAN OF CARE.
[2019-12-06 04:00] VITALS: BP 141/60
--- NOTE | 2019-12-06 04:51 | NUR ---
I have reviewed this patient and I concur with the Shift Assessment completed by the Licensed Practical Nurse today this shift.
[2019-12-06 05:40] LABS: BASOPHILS 0.7 % (0-2); EOSINOPHILS 2.6 % (0-7); HEMATOCRIT 30.3 % (42.0-54.0); HEMOGLOBIN 9.5 g/dL (13.5-17.5); IMMATURE GRANULOCYTES 0.1 % (0-5); LYMPHOCYTES 16.3 % (15-50); MCH 27.2 pg (26.0-34.0); MCHC 31.4 g/dL (31.0-37.0); MCV 86.8 fL (80.0-100.0); MEAN PLATELET VOLUME 8.9 fL (7.4-10.4); MONOCYTES 13.9 % (2-11); NEUTROPHILS 66.4 % (40-80); PLATELET COUNT 220 10x3/uL (130-400); RBC 3.49 10x6/uL (4.20-6.10); RDW 16.5 % (11.5-14.5); WBC 7.2 10x3/uL (4.8-10.8)
[2019-12-06 06:06] LABS: ALBUMIN 2.1 g/dL (3.4-5.0); BILIRUBIN - TOTAL 1.44 mg/dL (0.2-1.3); CARBON DIOXIDE 29.7 mmol/L (21.0-32.0); CREATININE - SERUM 1.2 mg/dL (0.6-1.3); POTASSIUM - SERUM 3.7 mmol/L (3.5-5.1); PROTEIN - SERUM 7.5 g/dL (6.4-8.2)
--- NOTE | 2019-12-06 08:00 | NUR ---
ALERT AND ORIENTED TO SELF. LUNGS CLEAR BILATERALLY. HEART SOUNDS S1 AND S2 HEARD IN ALL S[place]. BOWEL SOUNDS ACTIVE X 4. DRSGS TO BLE C/D/I. SCABS TO BUE. IV TO LEFT WRIST PATENT WITHOUT REDNESS. DENIES NEEDS. BED LOW. FALL PRECAUTIONS IN PLACE. CALL BOLDEN AND PERSONAL ITEMS IN REACH. WILL CONTINUE TO MONITOR.
[2019-12-06 08:45] VITALS: BP 138/64
[2019-12-06 12:12] VITALS: BP 146/78
--- NOTE | 2019-12-06 17:23 | NUR ---
RESTING IN BED. DENIES NEEDS. WILL CONTINUE TO MONITOR.
[2019-12-06 17:27] VITALS: BP 139/73
--- NOTE | 2019-12-06 18:19 | NUR ---
SPOKE WITH PHARMACY. STATES WILL BRING UP DIFLUCAN.
[2019-12-06 20:00] VITALS: BP 137/63
[2019-12-07] VITALS: BP 108/66
[2019-12-07 04:00] VITALS: BP 149/66
[2019-12-07 06:43] LABS: BASOPHILS 0.9 % (0-2); EOSINOPHILS 4.1 % (0-7); HEMATOCRIT 31.5 % (42.0-54.0); HEMOGLOBIN 9.8 g/dL (13.5-17.5); IMMATURE GRANULOCYTES 0.1 % (0-5); LYMPHOCYTES 15.2 % (15-50); MCH 26.8 pg (26.0-34.0); MCHC 31.1 g/dL (31.0-37.0); MCV 86.3 fL (80.0-100.0); MEAN PLATELET VOLUME 8.7 fL (7.4-10.4); NEUTROPHILS 66.7 % (40-80); PLATELET COUNT 218 10x3/uL (130-400); RBC 3.65 10x6/uL (4.20-6.10); RDW 16.6 % (11.5-14.5); WBC 6.9 10x3/uL (4.8-10.8)
[2019-12-07 07:00] LABS: ALBUMIN 2.2 g/dL (3.4-5.0); BILIRUBIN - TOTAL 1.53 mg/dL (0.2-1.3); CALCIUM 8.3 mg/dL (8.5-10.1); CARBON DIOXIDE 31.8 mmol/L (21.0-32.0); CREATININE - SERUM 1.2 mg/dL (0.6-1.3); POTASSIUM - SERUM 3.8 mmol/L (3.5-5.1); PROTEIN - SERUM 7.8 g/dL (6.4-8.2)
--- NOTE | 2019-12-07 07:43 | NUR ---
PT IS RESTING IN BED WITH EYES OPEN. RESPIRATIONS ARE EVEN AND UNLABORED. PT IS AAO X 4 AND ANSWERS ALL QUESTIONS APPROPRIATELY. BLE EDEMA NOTED. BILATERAL PEDAL PULSES PALP. CAP REFILL < 3 SECONDS. DRESSINGS TO BLE NOTED AND ARE CDI. BUE SCABS NOTED BANDAIDS APPLIED. PT ENCOURAGED TO NOT "PICK" AT SORES. PT VERBALIZES UNDERSTANDING. SCROTAL EDEMA NOTED WITH REDNESS TO BILATERAL GROIN. PT STATES "IT GETS PRETTY ITCHY IF I DONT HAVE THAT CREAM ON IT". WILL ADDRESS. ALL FALL PRECAUTIONS ARE IN PLACE. ELLYN LIFT AT BEDSIDE. BED IS IN THE LOWEST POSITION. CALL LIGHT AND BEDSIDE TABLE ARE WITHIN REACH. SIDE RAILS X 2. PT DENIES FURTHER NEEDS. WILL CONT TO MONITOR.
[2019-12-07 08:56] VITALS: BP 142/72
[2019-12-07] MEDS ORDERED: FLORAJEN3 CAPS460 MG PO (11:20)
[2019-12-07] MEDS ORDERED: Lotrisone Cream TOPICAL (11:20)
[2019-12-07] MEDS ORDERED: KENALOG 0.1 % 115 GM TOPICAL (11:20)
[2019-12-07] MEDS ORDERED: TESSALON PERLE100 MG PO (11:20)
[2019-12-07] MEDS ORDERED: MUCINEX600 MG PO (11:20)
[2019-12-07] MEDS ORDERED: PROTONIX40 MG PO (11:20)
[2019-12-07] MEDS ORDERED: CHRONULAC30 ML PO (11:21)
[2019-12-07] MEDS ORDERED: ZYVOX600 MG PO (11:21)
[2019-12-07] MEDS ORDERED: DIFLUCAN150 MG PO (11:21)
--- NOTE | 2019-12-07 11:24 | MORECARE ---
CASE MANAGEMENT DISCHARGE SUMMARY PATIENT: DELICIA BRYSON UNIT: [id number] ADM DATE: 11/28/19 AGE: 74 : 43 SEX: M ROOM/BED: D.2217 AUTHOR: LENY,DOC PHYSICIAN: REFERRING PHYSICIAN: LILIAN IGLESIAS MD DATE OF SERVICE: 12/07/19 Discharge Plan Patient Name: DELICIA BRYSON Facility: [facility]:[place] : 1945 Planned Disposition: Inpatient Rehab Anticipated Discharge Date: Discharge Date: Expected LOS: Initial Reviewer: [email or web address] Initial Review Date: 11/28/2019 Generated: 12/07/19 12:23 pm Comments DCP- Discharge Planning Updated by [email or web address]: Denisse Barnes on 12/07/19 10:[address] PATIENT WILL BE DISCHARGING TO [facility] TODAY TO A SKILLED BED. THEY WILL PROVIDE TRANSPORTATION, THEY WILL BE PICKING HIM UP AT [phone] I HAVE CALLED HIS POASHARON TO LET HER KNOW. I WENT OVER THE IMM WITH HER AND WILL MAIL HER A COPY. CM TILL CONTINUE TO FOLLOW AND ASSIST NEEDED DCP- Discharge Planning Updated by [email or web address]: Denisse Barnes on 12/05/19 8:[address] CLINCIALS FAXED TO [facility], [place] WITH ANUPAMA MIGUEL DCP- Discharge Planning Updated by [email or web address]: Denisse Barnes on 12/03/19 12:[address] Patient Name: DELICIA BRYSON Admission Status: ER Accout number: [id number] Admission Date: 11-28-2019 : 1945 Admission Diagnosis: Attending: LILIAN IGLESIAS Current LOS: 5 Anticipated DC Date: Planned Disposition: Inpatient Rehab Primary Insurance: MEDICARE A & B Discharge Planning Comments: CM met with patient to complete initial dc planning assessment. CM educated patient on the CM role and verbal consent given by patient to complete assessment. Patient lives at home with his friend Sharon who is also his POA Patient stated that he has multiple DME and would love to go to inpatient rehab at [facility]. I asked if I could speak with his girlfriend for more information and permission was given. I spoke with Sharon & she stated that he is at [facility] in a skilled bed and they are working on getting him BEATRICE. Sharon asked about Hospice services, she stated that he has gone down hill recently and is partial to total care. We discussed hospice & skilled. Her plan is for him to return to [facility] when he is ready for discharge. I did have the patient sign a TAYLOR and IMM was explained to patient and copy given . CM will continue to follow and will assist as needed with dc plans/needs. Controller Instructor: Denisse Barnes DCPIA - Discharge Planning Initial Assessment Updated by [email or web address]: Denisse Barnes on 12/03/19 1:50 pm * Is the patient Alert and Oriented? Yes * How many steps to enter\exit or inside your home? STEPS * PCP HOLLIE * Pharmacy [facility] * Preadmission Environment Alf Facility * Facility Name [facility] * ADLs Total Dependent * Equipment Bedside Commode * List name and contact numbers for known caregivers / representatives who currently or will assist patient after discharge: SHARON ARIA ([facility])[phone] * Verbal permission to speak to the caregivers and representatives has been obtained from the patient. Yes * Additional services required to return to the preadmission environment? Yes * Can the patient safely return to the preadmission environment? Yes * Has this patient been hospitalized within the prior 30 days at any hospital? No Coverage Notice Reviewer: [id number] Barnes Notice Issued Date-Time: 12/03/2019 13:45 Notice Type: IM Discharge Notice Notice Delivered To: Patient Relationship to Patient: Chainstitch Seat Joiner Name: Delivery Method: HAND - Hand Delivered Pauline Days: Prior Verbal Notification: Recipient Understood Notice: Yes Recipient Signature: Yes Med Rec Note Co-signed by Attending: Coverage Notice Comment: Reviewer: [id number] Barnes Notice Issued Date-Time: 12/03/2019 13:45 Notice Type: Patient Choice Letter Notice Delivered To: Patient Relationship to Patient: Power of Special Diet Cook Chainstitch Seat Joiner Name: SHARON Delivery Method: HAND - Hand Delivered Pauline Days: Prior Verbal Notification: Recipient Understood Notice: Yes Recipient Signature: Yes Med Rec Note Co-signed by Attending: Coverage Notice Comment: Reviewer: [email or web address] Tyler Barnes Notice Issued Date-Time: 12/07/2019 11:20 Notice Type: IM Discharge Notice Notice Delivered To: Patient Relationship to Patient: Chainstitch Seat Joiner Name: Delivery Method: - Pauline Days: Prior Verbal Notification: Recipient Understood Notice: Recipient Signature: Med Rec Note Co-signed by Attending: Coverage Notice Comment: Last DP export: 12/05/19 8:37 a Patient Name: DELICIA BRYSON Page [phone] at 1124 All edits/amendments must be made on the electronic document DICTATION DATE: 12/07/191122 SADDLE TREE STITCHER: ONOFRE 12/07/19 112 RPT#: [id number] DC DATE: STATUS: ADM IN [facility] [address] [place] [address] END OF REPORT
--- NOTE | 2019-12-07 13:01 | NUR ---
REPORT CALLED TO CLEMENTE AT [facility]. NO FURTHER QUESTIONS.
[2019-12-07 13:36] VITALS: BP 130/49
--- NOTE | 2019-12-07 14:20 | NUR ---
OT NOTE: MAX ASSIST FOR SUPINE TO SIT; STATIC SITTING BALANCE ON EOB WITH CGA; ABLE TO WASH FACE AND HANDS WITH CLOTH AND SET UP AND VERBAL CUES; MIN ASSIST TO ESTEBAN GOWN; MOD ASSIST X 2 FOR SIT TO STAND FROM BED LEVEL; ABLE TO TRANSFER WITH WALKER WITH MIN/MOD ASSIST X 2 AND CONTINUOUS VERBAL CUES FOR FOOT PLACEMENT AND WALKER MGMT; MAX ASSIST X 2 FOR STAND TO SIT; TOTAL ASSIST FOR TOILET HYGIENE WITH MAX ASSIST TO REMAIN STANDING DURING THIS TIME; SABINA YANG, OTR/L [phone]
--- NOTE | 2019-12-07 15:00 | NUR ---
PT TRANSPROTED FROM ROOM BVIA WHEELCHAIR FOR TRANSPORTATION TO [facility]. ELLYN LIFT USED FOR ASSISTANCE. PT AT BEDSIDE TO ASSIST FOR SAFE PT TRANSFERRING. PT DENIES FURTHER QUESTIONS/CONCERN/NEEDS AT THIS TIME. PT STATES THAT HE HAS ALL PERSONAL BELONGINGS AT THIS TIME. PT THANKS THIS NURSE FOR CARE GIVEN DURING THIS SHIFT. PIV REMOVED FROM LEFT FA WITH CATHETER TIP INTACT. DRESSING APPLIED.
--- NOTE | 2019-12-10 08:25 | MORECARE ---
CASE MANAGEMENT DISCHARGE SUMMARY PATIENT: DELICIA BRYSON UNIT: [id number] ADM DATE: 11/28/19 AGE: 74 : 44 SEX: M ROOM/BED: D.2217 AUTHOR: LENY,DOC PHYSICIAN: REFERRING PHYSICIAN: LILIAN IGLESIAS MD DATE OF SERVICE: 12/10/19 Discharge Plan Patient Name: DELICIA BRYSON Facility: [facility]:[place] : 1945 Planned Disposition: Inpatient Rehab Anticipated Discharge Date: Discharge Date: 12/07/2019 Expected LOS: Initial Reviewer: [email or web address] Initial Review Date: 11/28/2019 Generated: 12/10/19 9:25 am Comments DCP- Discharge Planning Updated by [email or web address]: Denisse Barnes on 12/07/19 10:[address] PATIENT WILL BE DISCHARGING TO [facility] TODAY TO A SKILLED BED. THEY WILL PROVIDE TRANSPORTATION, THEY WILL BE PICKING HIM UP AT [phone] I HAVE CALLED HIS POASHARON TO LET HER KNOW. I WENT OVER THE IMM WITH HER AND WILL MAIL HER A COPY. CM TILL CONTINUE TO FOLLOW AND ASSIST NEEDED DCP- Discharge Planning Updated by [email or web address]: Denisse Barnes on 12/05/19 8:[address] CLINCIALS FAXED TO [facility], [place] WITH ANUPAMA WITH MYRIAM DCP- Discharge Planning Updated by [id number]: Denisse Barnes on 12/03/19 12:[address] Patient Name: DELICIA BRYSON Admission Status: ER Accout number: [id number] Admission Date: 11-28-2019 : 1945 Admission Diagnosis: Attending: LILIAN IGLESIAS Current LOS: 5 Anticipated DC Date: Planned Disposition: Inpatient Rehab Primary Insurance: MEDICARE A & B Discharge Planning Comments: CM met with patient to complete initial dc planning assessment. CM educated patient on the CM role and verbal consent given by patient to complete assessment. Patient lives at home with his friend Sharon who is also his POA Patient stated that he has multiple DME and would love to go to inpatient rehab at [facility]. I asked if I could speak with his girlfriend for more information and permission was given. I spoke with Sharon & she stated that he is at [facility] in a skilled bed and they are working on getting him BEATRICE. Sharon asked about Hospice services, she stated that he has gone down hill recently and is partial to total care. We discussed hospice & skilled. Her plan is for him to return to [facility] when he is ready for discharge. I did have the patient sign a TAYLOR and IMM was explained to patient and copy given . CM will continue to follow and will assist as needed with dc plans/needs. Seed Sales Manager: Denisse Barnes DCPIA - Discharge Planning Initial Assessment Updated by [email or web address]: Denisse Barnes on 12/03/19 1:50 pm * Is the patient Alert and Oriented? Yes * How many steps to enter\exit or inside your home? STEPS * PCP HOLLIE * Pharm[facility] * Preadmission Environment Retirement Facility * Facility Name [facility] * ADLs Total Dependent * Equipment Bedside Commode * List name and contact numbers for known caregivers / representatives who currently or will assist patient after discharge: SHARON KNAPP ([facility])[phone] * Verbal permission to speak to the caregivers and representatives has been obtained from the patient. Yes * Additional services required to return to the preadmission environment? Yes * Can the patient safely return to the preadmission environment? Yes * Has this patient been hospitalized within the prior 30 days at any hospital? No Coverage Notice Reviewer: [id number] Barnes Notice Issued Date-Time: 12/03/2019 13:45 Notice Type: IM Discharge Notice Notice Delivered To: Patient Relationship to Patient: Process Inspector Name: Delivery Method: HAND - Hand Delivered Pauline Days: Prior Verbal Notification: Recipient Understood Notice: Yes Recipient Signature: Yes Med Rec Note Co-signed by Attending: Coverage Notice Comment: Reviewer: [id number] Barnes Notice Issued Date-Time: 12/03/2019 13:45 Notice Type: Patient Choice Letter Notice Delivered To: Patient Relationship to Patient: Power of Raw Juice Weigher Process Inspector Name: SHARON Delivery Method: HAND - Hand Delivered Pauline Days: Prior Verbal Notification: Recipient Understood Notice: Yes Recipient Signature: Yes Med Rec Note Co-signed by Attending: Coverage Notice Comment: Reviewer: [id number] Tyler Barnes Notice Issued Date-Time: 12/07/2019 11:20 Notice Type: IM Discharge Notice Notice Delivered To: Patient Relationship to Patient: Process Inspector Name: Delivery Method: PHONE - Phone Pauline Days: Prior Verbal Notification: Recipient Understood Notice: Yes Recipient Signature: Yes Med Rec Note Co-signed by Attending: Coverage Notice Comment: EXPLAINED OVER PHONE WITH SHARON HILL A COPY WILL BE MAILED TO HER Last DP export: 12/07/19 10:24 a Patient Name: DELICIA BRYSON Page [id number] at 0825 All edits/amendments must be made on the electronic document DICTATION DATE: 12/10/19824 NURSE OBGYN: ONOFRE 12/10/19824 RPT#: [id number] DC DATE:12/07/19 STATUS: DIS IN [facility] [address] [place] [address] END OF REPORT
== END 2019-12-07 16:26 | DRG 441 ==
LOC: D.ER 00:57 → D.MS 05:51
PROVIDERS: Family Medicine; ADMIT Internal Medicine Nephrology; ATTEND Internal Medicine Nephrology
DX: K72.00 Acute and subacute hepatic failure without coma (principal); J18.9 Pneumonia, unspecified organism; N39.0 Urinary tract infection, site not specified; N17.9 Acute kidney failure, unspecified; E87.1 Hypo-osmolality and hyponatremia; E44.0 Moderate protein-calorie malnutrition; Z68.41 Body mass index [BMI] 40.0-44.9, adult; E87.6 Hypokalemia; D64.9 Anemia, unspecified; E11.9 Type 2 diabetes mellitus without complications; K21.9 Gastro-esophageal reflux disease without esophagitis; B95.2 Enterococcus as the cause of diseases classified elsewhere